=== PATIENT | female | born 1990 | race Two or more races ===

== ENCOUNTER 2016-12-01 00:12 | Emergency (ER) | payer MEDICAID ==
[~2016-12-01] VITALS: Ht 162.6 cm; Wt 54.4 kg
[2016-12-01 00:13] VITALS: BP 116/76
[2016-12-01 00:46] LABS: APPEARANCE,URINE CLOUDY (CLEAR); BILIRUBIN,URINE 1+ (NEGATIVE); BLOOD, URINE 3+ Ery/uL (NEGATIVE); COLOR,URINE YELLOW (YELLOW); KETONES,URINE TRACE (NEGATIVE); LEUKOCYTE ESTERASE ,URINE NEGATIVE (NEGATIVE); NITRITE, URINE NEGATIVE (NEGATIVE); PROTEIN,URINE 1+ mg/dl (NEGATIVE); UGLUCOSE NEGATIVE (NEGATIVE); UROBILINOGEN,URINE 0.2 EU/dL (0.2)
[2016-12-01 00:54] LABS: BACTERIA,URINE 2+ /HPF (None Seen); MUCUS,URINE Few /LPF (None Seen); RBC,URINE 81-100 /HPF (0-2); SQUAMOUS EPITHELIAL CELL,UR Few /HPF (None Seen); URINE AMORPHOUS URATE Few /HPF (None Seen)
--- NOTE | 2016-12-01 02:35 | NUR ---
Patient discharged to home in stable condition. Written and verbal after care instructions given. Patient verbalizes understanding of instruction. ambulatory with a steady gait noted. pt aaox4 no acute distress noted, resp even and unlabored.
== END 2016-12-01 02:36 | disposition home or self-care (01) ==
LOC: ER 00:13
DX: R10.2 Pelvic and perineal pain (principal); N94.6 Dysmenorrhea, unspecified; F41.9 Anxiety disorder, unspecified
CPT/HCPCS: 81001; 84703; 87086; 99284; A4606; J1885; Z7610; 81000-TC

== ENCOUNTER 2017-05-04 21:26 | Emergency (ER) | payer MEDICAID ==
[~2017-05-04] VITALS: Ht 162.6 cm; Wt 54.4 kg
--- NOTE | 2017-05-04 23:30 | NUR ---
CALLED FOR ROOM ASSIGNMENT X3; NO ANSWER
--- NOTE | 2017-05-04 23:56 | NUR ---
BIBSELF C/O "COUGH X2 WEEKS; EAR PAIN" RR EVEN AND UNLABORED. NO SOB NOTED. NAD NOTED. NO NVD AT THIS TIME. PT GOWNED AND PLACED ON MONITOR WAITING FOR MD CHRISTY.
[2017-05-05] MEDS ORDERED: PSEUDOEPHEDRINE HCL 30 MG TABLET ONE (00:11)
[2017-05-05] MEDS ORDERED: AZITHROMYCIN 250 MG TABLET ONE (00:11)
[2017-05-05] MEDS: PSEUDOEPHEDRINE HCL 30 MG TABLET PO ONE (00:13)
[2017-05-05] MEDS: AZITHROMYCIN 250 MG TABLET PO ONE (00:14)
--- NOTE | 2017-05-05 00:36 | NUR ---
RADIOLOGY AT BEDSIDE FOR XRAY
--- NOTE | 2017-05-05 01:15 | NUR ---
DR. JOHNSTON AT BEDSIDE FOR PELVIC EXAM. ANDRÉS AT BEDSIDE FEMALE WITNESS.
--- NOTE | 2017-05-05 01:55 | NUR ---
Patient does not wish to proceed with medical care recommended by Patient given information related to possible complications, up to and including , which could occur as a result of leaving the hospital at this time. Patient verbalizes understanding of risks involved due to leaving against medical advice. Patient has signed AMA form.
[2017-05-05 02:00] VITALS: BP 116/64
== END 2017-05-05 02:01 | disposition left against medical advice (07) ==
LOC: ER 21:28
DX: R05 Cough (principal); H92.02 Otalgia, left ear; N89.8 Other specified noninflammatory disorders of vagina; F41.9 Anxiety disorder, unspecified; Z71.6 Tobacco abuse counseling
CPT/HCPCS: 71045-TC; 84703-TC; 87210-TC; 87491; 87591; A4606; Z7610

== ENCOUNTER 2018-05-30 19:55 | Emergency (ER) | payer MEDICAID ==
[~2018-05-30] VITALS: Ht 162.6 cm; Wt 54.4 kg
[2018-05-30 20:00] VITALS: BP 125/92
--- NOTE | 2018-05-30 20:05 | NUR ---
PT ANA FROM HOME C/O ANXIETY X 1 HOUR. HX OF ANXIETY. PT MOTHER AT CHAIRSIDE. WILL CONTINUE TO MONITOR.
[2018-05-30] MEDS ORDERED: IV NS 0.9% 500 ML BAG IV ONE (21:30)
--- NOTE | 2018-05-30 21:50 | NUR ---
IV removed. Catheter intact and site benign. Pressure and 4x4 applied to site. No bleeding noted.Patient discharged to home in stable condition. Written and verbal after care instructions given. Patient verbalizes understanding of instruction. PT AMBULATORY WITH STEADY GAIT ACCOMPANIED BY MOTHER.
== END 2018-05-30 22:53 | disposition home or self-care (01) ==
LOC: ER 19:55
DX: F41.9 Anxiety disorder, unspecified (principal); R00.0 Tachycardia, unspecified; F17.200 Nicotine dependence, unspecified, uncomplicated
CPT/HCPCS: 93005; 99284; A4606; J7040

== ENCOUNTER 2020-07-02 21:45 | Emergency (ER) | payer MEDICAID ==
[~2020-07-02] VITALS: Ht 157.5 cm; Wt 54.4 kg
--- NOTE | 2020-07-02 22:16 | NUR ---
PATIENT CAME TO ER BED 16 C/O CONCERN FOR GENITALIA ISSUES. PATIENT STATES THAT SHE HAD NOT HAD SEX FOR 5 MONTHS AND "DECIDED TO OVERNIGHT HOUSEPERSON WITH SOMEONE". PATIENT STATES THAT SHE HAS ITCHINESS IN THE [place] REASON. PATIENT IS AAOX4. NO SOB .BREATHING EVENLY AND UNLABORED ON ROOM AIR.
[2020-07-02] MEDS ORDERED: AZITHROMYCIN 250 MG TABLET PO ONE (22:30)
[2020-07-02] MEDS ORDERED: CEFTRIAXONE 500 MG VIAL IM ONE (22:30)
[2020-07-02] MEDS ORDERED: CEFTRIAXONE 500 MG VIAL ONE (22:33)
[2020-07-02] MEDS ORDERED: LIDOCAINE /MPF 1% VIAL 5 ML VIAL ONE (22:34)
[2020-07-02] MEDS ORDERED: AZITHROMYCIN 250 MG TABLET ONE (22:34)
[2020-07-02 22:56] VITALS: BP 123/66
--- NOTE | 2020-07-02 22:56 | NUR ---
Patient discharged to home in stable condition. Written and verbal after care instructions given. Patient verbalizes understanding of instruction.
== END 2020-07-02 22:56 | disposition home or self-care (01) ==
LOC: ER 21:48
DX: N89.8 Other specified noninflammatory disorders of vagina (principal); F41.9 Anxiety disorder, unspecified
CPT/HCPCS: 84703; 87491; 87591; 96372; 99283; J0696; J3490

== ENCOUNTER 2020-08-06 18:25 | Emergency (ER) | payer MEDICAID ==
[~2020-08-06] VITALS: Ht 160 cm; Wt 63.5 kg
--- NOTE | 2020-08-06 18:25 | NUR ---
PT BIBRA 881 FROM WORK C/O DIZZINESS X2 DAYS MUCH WORSE TODAY. PT IS AAOX4, NOT IN RESPIRATORY DISTRESS, V/S STABLE, KEPT RESTED AND COMFORTABLE. WILL CONTINUE TO MONITOR.
--- NOTE | 2020-08-06 18:32 | NUR ---
SEEN AND EXAMINED BY
--- NOTE | 2020-08-06 18:36 | NUR ---
URINE SPECIMEN COLLECTED AND SENT TO LAB.
[2020-08-06] MEDS ORDERED: LORAZEPAM 0.5 MG TABLET ONE (18:40)
[2020-08-06] MEDS ORDERED: ONDANSETRON HCL/PF 4 MG/2 ML VIAL ONE (18:40)
[2020-08-06] MEDS ORDERED: KETOROLAC TROMETHAMINE 15 MG/ML VIAL ONE (18:40)
[2020-08-06] MEDS ORDERED: LORAZEPAM INJ 2 MG/ML VIAL ONE (18:54)
[2020-08-06] MEDS ORDERED: IV NS 0.9% 1,000 ML BAG IV ONE (19:00)
[2020-08-06] MEDS ORDERED: LORAZEPAM 0.5 MG TABLET PO ONE (19:00)
[2020-08-06] MEDS ORDERED: KETOROLAC TROMETHAMINE INJ 30 MG/ML VIAL IV ONE (19:00)
[2020-08-06] MEDS ORDERED: ONDANSETRON HCL/PF 4 MG/2 ML VIAL IVP ONE (19:00)
[2020-08-06] MEDS ORDERED: LORAZEPAM INJ 2 MG/ML VIAL IV ONE (19:00)
--- NOTE | 2020-08-06 19:00 | NUR ---
IV LINE ESTABLISHED BLOOD DRAWN AND SENT TO LAB.
--- NOTE | 2020-08-06 19:05 | NUR ---
REC'D REPORT FORM RYAN LAW FOR [facility]
[2020-08-06 19:08] LABS: BILIRUBIN,URINE NEGATIVE (NEGATIVE); COLOR,URINE YELLOW (YELLOW); LEUKOCYTE ESTERASE ,URINE TRACE (NEGATIVE); NITRITE, URINE NEGATIVE (NEGATIVE); PROTEIN,URINE NEGATIVE (NEGATIVE); UGLUCOSE NEGATIVE (NEGATIVE); UROBILINOGEN,URINE 0.2 EU/dL (0.2)
--- NOTE | 2020-08-06 19:10 | NUR ---
REPORT GIVEN TO RYAN MAY FOR [facility].
--- NOTE | 2020-08-06 19:11 | NUR ---
BLOOD SENT TO LAB
[2020-08-06 19:32] LABS: CALCIUM, SERUM 9.2 mg/dL (8.5-10.1); CREATININE 0.7 mg/dL (0.6-1.3); POTASSIUM 3.7 mmol/L (3.5-5.1)
[2020-08-06 19:38] LABS: BILIRUBIN,DIRECT 0.1 mg/dL (0.0-0.2); BILIRUBIN,TOTAL 0.4 mg/dL (0.2-1.0); TOTAL PROTEIN, SERUM 7.8 g/dL (6.4-8.2)
[2020-08-06 19:41] LABS: BACTERIA,URINE 1+ /HPF (None Seen)
[2020-08-06 20:00] LABS: BASOPHILS % (AUTO) 0.4 % (0.0-2.0); EOSINOPHILS % (AUTO) 1.1 % (0.0-6.0); HEMATOCRIT 41 % (33-45); HEMOGLOBIN 13.8 g/dL (11.5-14.8); LYMPHOCYTES # (AUTO) 2.4 /CMM (0.8-4.8); LYMPHOCYTES % (AUTO) 22.7 % (20.0-44.0); MEAN CORPUSCULAR HGB CONC 34 g/dl (31.0-36.0); MEAN CORPUSCULAR VOLUME 89 fL (82-100); MONOCYTES # (AUTO) 0.7 /CMM (0.1-1.30); MONOCYTES % (AUTO) 6.9 % (2.0-12.0); NEUTROPHILS # (AUTO) 7.2 /CMM (1.8-8.9); NEUTROPHILS % (AUTO) 68.9 % (43.0-81.0); PLATELET COUNT (AUTO) 232 /CMM (150-450); WHITE BLOOD COUNT (AUTO) 10.5 K/uL (4.3-11.0)
[2020-08-06] MEDS ORDERED: IBUP-1955 PO (20:21)
--- NOTE | 2020-08-06 20:23 | NUR ---
Patient discharged to home in stable condition. Written and verbal after care instructions given. Patient verbalizes understanding of instruction. IV removed. Catheter intact and site benign. Pressure and 4x4 applied to site. No bleeding noted. Pt ambulatory with a steady gait
[2020-08-06 20:29] VITALS: BP 100/74
== END 2020-08-06 20:23 | disposition home or self-care (01) ==
LOC: ER 18:33
DX: F41.9 Anxiety disorder, unspecified (principal); R42 Dizziness and giddiness; F17.200 Nicotine dependence, unspecified, uncomplicated
CPT/HCPCS: 36415; 80048; 80076; 81001; 83690; 84703; 85025; 87086; 93005; 96361; 96374; 99284; J1885; J2060; J2405; J7030

== ENCOUNTER 2020-08-08 22:33 | Emergency (ER) | payer MEDICAID ==
[~2020-08-08] VITALS: Ht 160 cm; Wt 63.5 kg
[~2020-08-08 22:33] MED LIST: IBUP-1955 PO
[2020-08-08 22:40] VITALS: BP 110/85
[2020-08-08] MEDS ORDERED: KETOROLAC TROMETHAMINE INJ 60 MG/2 ML VIAL IM ONE ×2 (23:00→23:05)
[2020-08-08] MEDS ORDERED: TRAM50TA2 PO ×2 (23:02)
[2020-08-08] MEDS ORDERED: CETI-90 PO (23:02)
== END 2020-08-08 23:18 | disposition home or self-care (01) ==
LOC: ER 22:33
DX: R51.9 Headache, unspecified (principal); R42 Dizziness and giddiness; F41.9 Anxiety disorder, unspecified; F17.200 Nicotine dependence, unspecified, uncomplicated; Z79.899 Other long term (current) drug therapy
CPT/HCPCS: 96372; 99283; J1885

== ENCOUNTER 2020-08-29 21:20 | Emergency (ER) | payer MEDICAID ==
[~2020-08-29] VITALS: Ht 162.6 cm; Wt 63.0 kg
[~2020-08-29 21:20] MED LIST changes: +CETI-90 PO; +TRAM50TA2 PO
--- NOTE | 2020-08-29 21:45 | NUR ---
BIBSELF C/O LOWER ABD PAIN RADIATING TO BACK X 3 DAYS. LMP: 08/11/20, + WHITE VAGINAL DISCHARGE STATES REOCCURING YEAST INFECTION, ON FLUCONAZOLE X 1 MONTH. PT AMBULATORY TO BED 8 ER, ON MONITOR . VSS. WILL CONT TO MONITOR
--- NOTE | 2020-08-29 22:18 | NUR ---
pelvic exam done by PA. pt tolerated the procedure well. wet mount swab collected and sent to lab
[2020-08-29 22:29] LABS: BILIRUBIN,URINE NEGATIVE (NEGATIVE); COLOR,URINE YELLOW (YELLOW); LEUKOCYTE ESTERASE ,URINE TRACE (NEGATIVE); NITRITE, URINE NEGATIVE (NEGATIVE); PROTEIN,URINE NEGATIVE (NEGATIVE); UGLUCOSE NEGATIVE (NEGATIVE); UROBILINOGEN,URINE 0.2 EU/dL (0.2)
[2020-08-29 22:35] LABS: BACTERIA,URINE Few /HPF (None Seen); SQUAMOUS EPITHELIAL CELL,UR Few /HPF (None Seen)
--- NOTE | 2020-08-29 22:39 | NUR ---
US TECH AT BED SIDE
[2020-08-29] MEDS ORDERED: FLUC150T PO (23:03)
[2020-08-29] MEDS ORDERED: DOXY100C41 PO (23:03)
[2020-08-29] MEDS ORDERED: METR500T PO (23:03)
[2020-08-29] MEDS ORDERED: CEFTRIAXONE 500 MG VIAL ONE (23:23)
[2020-08-29] MEDS ORDERED: LIDOCAINE /MPF 1% VIAL 5 ML VIAL ONE (23:24)
[2020-08-29] MEDS ORDERED: IBUPROFEN 600 MG TABLET ONE (23:24)
[2020-08-29] MEDS ORDERED: IBUPROFEN 600 MG TABLET PO ONE (23:30)
[2020-08-29] MEDS ORDERED: CEFTRIAXONE 500 MG VIAL IM ONE (23:30)
[2020-08-29] MEDS ORDERED: IBUP-1955 PO (23:33)
--- NOTE | 2020-08-29 23:42 | NUR ---
PT IS MEDICALLY STABLE FOR D/C. Patient discharged to home in stable condition. Rx and Written and verbal after care instructions given. Patient verbalizes understanding of instruction.
[2020-08-29 23:44] VITALS: BP 112/74
== END 2020-08-29 23:44 | disposition home or self-care (01) ==
LOC: ER 21:25
DX: R10.2 Pelvic and perineal pain (principal); F41.9 Anxiety disorder, unspecified; F17.200 Nicotine dependence, unspecified, uncomplicated; Z79.899 Other long term (current) drug therapy
CPT/HCPCS: 76856; 81001; 84703; 87086; 87210; 87491; 87591; 96372; 99284; J0696; J3490